=== PATIENT | female | born 1980 | race African-American/Black ===

== ENCOUNTER 2017-08-17 20:32 | Emergency (ER) | payer OTHER, MEDICAID ==
[~2017-08-17] VITALS: Ht 149.9 cm; Wt 74.8 kg
[~2017-08-17 20:32] MED LIST: ACETAMINOPHEN-1 EAC1 PO; BACTRIM DS TAB1 EACH PO; BENTYL 20 MG TA20 M1 PO; BIRTH CONTROL; CEFDINIR300 MG PO; CIPRO500 MG PO; CIPROFLOXACIN500 M1 PO; CIPROFLOXIN HC2.5 M1 OTIC; COLACE100 MG PO; DELTASONE20 MG PO; FLAGYL500 MG PO; FLEXERIL PO; HYDROCODON-ACE1 EAC7 PO; HYDROCODONE-AP1 EAC6 PO; IBUPROFEN 800800 M1 PO; IBUPROFEN 800800 MG PO; IRON325 PO; K-DUR 20 MEQ T20 MEQ PO; KEFLEX500 MG PO; LEVOTHYROXINE 0.1 MG PO; LORAZEPAM 0.50.5 MG PO; MIRALAX17 GM PO; NAPROSYN500 MG PO; NOHOMEMEDICATIONS; NORCO 5-325 TA1 EACH PO; ONDANSETRON HCL4 M2 PO; ULTRAM 50MG TAB50 MG PO; VICODIN 5-5001 EACH PO; VISTARIL 25 MG25 M1 PO; XANAX 0.25 MG0.25 MG PO; ZADITOR5 M1 OPHTHALMIC; ZITHROMAX500 MG PO; ZOFRAN ODT4 MG PO; ZOFRAN4 MG PO; ZOLOFT25 MG PO; ZPAK PO
[2017-08-17] MEDS ORDERED: FLEXERIL PO (21:55)
[2017-08-17] MEDS ORDERED: NAPROSYN500 M1 PO (21:55)
[2017-08-17 22:07] VITALS: BP 124/87
== END 2017-08-17 22:09 | disposition home or self-care (01) ==
LOC: M.ERS 20:32
DX: S39.012A Strain of muscle, fascia and tendon of lower back, initial encounter (principal); S66.911A Strain of unspecified muscle, fascia and tendon at wrist and hand level, right hand, initial encounter; E03.9 Hypothyroidism, unspecified; F41.0 Panic disorder [episodic paroxysmal anxiety]; F17.210 Nicotine dependence, cigarettes, uncomplicated; Z88.0 Allergy status to penicillin; Z88.1 Allergy status to other antibiotic agents; V89.2XXA Person injured in unspecified motor-vehicle accident, traffic, initial encounter; Y93.89 Activity, other specified; Y92.89 Other specified places as the place of occurrence of the external cause; Y99.8 Other external cause status

== ENCOUNTER 2018-08-05 20:01 | Emergency (ER) | payer OTHER ==
[~2018-08-05] VITALS: Ht 149.9 cm; Wt 79.4 kg
[~2018-08-05 20:01] MED LIST changes: +NAPROSYN500 M1 PO
[2018-08-05] MEDS ORDERED: IBUPROFEN 800800 M1 PO (20:32)
[2018-08-05] MEDS ORDERED: FLEXERIL PO (20:32)
[2018-08-05 21:55] VITALS: BP 122/77
== END 2018-08-05 21:55 | disposition home or self-care (01) ==
LOC: M.ERS 20:01
DX: S16.1XXA Strain of muscle, fascia and tendon at neck level, initial encounter (principal); S00.81XA Abrasion of other part of head, initial encounter; J43.9 Emphysema, unspecified; E05.90 Thyrotoxicosis, unspecified without thyrotoxic crisis or storm; Z90.710 Acquired absence of both cervix and uterus; Z98.890 Other specified postprocedural states; F17.210 Nicotine dependence, cigarettes, uncomplicated; Z88.0 Allergy status to penicillin; Z88.1 Allergy status to other antibiotic agents; V49.9XXA Car occupant (driver) (passenger) injured in unspecified traffic accident, initial encounter; Y93.89 Activity, other specified; Y92.89 Other specified places as the place of occurrence of the external cause; Y99.8 Other external cause status

== ENCOUNTER 2018-11-11 23:27 | Emergency (ER) | payer OTHER ==
[~2018-11-11] VITALS: Ht 149.9 cm; Wt 77.1 kg
[2018-11-11] MEDS ORDERED: ZOLOFT25 MG PO (23:59)
[2018-11-11] MEDS ORDERED: XANAX 0.5 MG0.5 MG PO (23:59)
[2018-11-12 00:18] VITALS: BP 113/71
--- NOTE | 2018-11-12 09:00 | EKG ---
[place] [address] ELECTROCARDIOGRAM REPORT Name: MAUDE NASSAR 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
== END 2018-11-12 00:33 | disposition home or self-care (01) ==
LOC: M.ERS 23:27
DX: F41.0 Panic disorder [episodic paroxysmal anxiety] (principal); Z90.710 Acquired absence of both cervix and uterus; E03.9 Hypothyroidism, unspecified; F17.210 Nicotine dependence, cigarettes, uncomplicated; Z98.890 Other specified postprocedural states; Z87.440 Personal history of urinary (tract) infections; Z88.0 Allergy status to penicillin; Z86.2 Personal history of diseases of the blood and blood-forming organs and certain disorders involving the immune mechanism; Z88.1 Allergy status to other antibiotic agents

== ENCOUNTER 2018-11-26 22:05 | Emergency (ER) | payer OTHER ==
[~2018-11-26] VITALS: Ht 149.9 cm; Wt 77.1 kg
[~2018-11-26 22:05] MED LIST changes: +XANAX 0.5 MG0.5 MG PO
[2018-11-26 22:35] LABS: ABSOLUTE BASOPHILS 0.1 thou/uL (0.0-0.2); ABSOLUTE EOSINOPHILS 0.2 thou/uL (0.0-0.7); ABSOLUTE LYMPHOCYTES 2.8 thou/uL (0.8-5.3); ABSOLUTE MONOCYTES 0.5 thou/uL (0.0-1.2); ABSOLUTE NEUTROPHILS 3.3 thou/uL (1.6-8.1); BASOPHILS 0.8 %; EOSINOPHILS 2.3 %; HEMATOCRIT 32.1 % (37.0-47.0); HEMOGLOBIN 10.2 gm/dL (12.0-15.0); LYMPHOCYTES 41.4 %; MCH 23.9 pg (26.0-34.0); MCV 74.7 fL (80.0-100.0); MONOCYTES 6.7 %; MPV 7.6 fl. (7.2-11.1); NUCLEATED RBCS 0 /100WBC; PLATELET COUNT* 480 thou/uL (150-400); POLYS 48.8 %; RBC 4.29 mil/uL (4.20-5.00); RDW-CV 20.7 % (10.5-14.5); WBC 6.8 thou/uL (4.0-11.0)
[2018-11-26 22:41] LABS: ANION GAP 16 mmol/L (7-16); BUN 6 mg/dL (7-18); CALCIUM 9.3 mg/dL (8.5-10.1); CHLORIDE 103 mmol/L (98-107); CO2 22 mmol/L (21-32); CREATININE 0.8 mg/dL (0.6-1.3); GLUCOSE 102 mg/dL (70-99); POTASSIUM 3.1 mmol/L (3.5-5.1); SODIUM 141 mmol/L (136-145)
[2018-11-26 22:45] LABS: APTT 26.4 Seconds (25.0-31.3); INR 1.1; PROTIME 10.9 Seconds (9.20-11.50)
[2018-11-26 22:53] LABS: ALKALINE PHOSPHATASE 84 U/L (46-116); CK-MB MASS < 0.5 ng/mL (<0.5-3.6); LIPASE 99 U/L (73-393); MAGNESIUM 1.7 mg/dL (1.8-2.4); NT-PRO BRAIN NAT PEPTIDE 18 pg/mL (<300); SGOT 17 U/L (15-37); SGPT 25 U/L (30-65); TOTAL BILIRUBIN 0.3 mg/dL (<0.1-1.0); TOTAL PROTEIN 7.9 g/dL (6.4-8.2); TROPONIN-I LEVEL <0.06 ng/mL (<0.06)
[2018-11-26 23:10] VITALS: BP 100/66
[2018-11-27 06:10] LABS: ANISOCYTOSIS 2+; HYPOCHROMASIA 1+; MICROCYTES 1+; PLATELET ESTIMATE INCREASED; POLYCHROMASIA 1+
[2018-11-27 06:11] LABS: OVALOCYTES Occasional
--- NOTE | 2018-11-29 14:31 | EKG ---
[place] [address] ELECTROCARDIOGRAM REPORT Name: MAUDE NASSAR 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
== END 2018-11-27 00:05 | disposition home or self-care (01) ==
LOC: M.ERS 22:05
PROVIDERS: Family Medicine
DX: F41.9 Anxiety disorder, unspecified (principal); R07.89 Other chest pain; E05.90 Thyrotoxicosis, unspecified without thyrotoxic crisis or storm; F17.210 Nicotine dependence, cigarettes, uncomplicated; Z87.440 Personal history of urinary (tract) infections; Z86.2 Personal history of diseases of the blood and blood-forming organs and certain disorders involving the immune mechanism; Z98.890 Other specified postprocedural states; Z90.710 Acquired absence of both cervix and uterus; Z88.0 Allergy status to penicillin; Z88.1 Allergy status to other antibiotic agents

== ENCOUNTER 2019-06-06 18:20 | Emergency (ER) | payer OTHER ==
[~2019-06-06] VITALS: Ht 149.9 cm; Wt 79.4 kg
[2019-06-06] MEDS ORDERED: FLEXERIL PO (20:19)
[2019-06-06] MEDS ORDERED: NORCO 5-325 TA1 EAC1 PO (20:19)
[2019-06-06 20:27] VITALS: BP 112/80
--- NOTE | 2019-06-07 14:13 | EKG ---
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1980 Requested By: Vannesa Nickerson Order Number: [id number] MD: Jamar Heller Measurements Intervals [place] Rate: 88 P: 63 AK: 159 QRS: 43 QRSD: 80 T: 40 QT: 343 QTc: 415 Interpretive Statements Sinus rhythm Borderline T abnormalities, inferior leads Baseline wander in lead(s) II,III,aVR,aVL,aVF,V1,V2,V5,V6 Compared to ECG 11/26/2018 22:12:27 no change Electronically Signed On 06-07-2019 14:13:22 EYELET ROW MARKER by Jamar Heller [email or web address] <ELECTRONICALLY SIGNED> By: Jamar Heller MD, FACC 06/07/19 1413 1840 1840 Jamar Heller MD, [facility] /EPI
== END 2019-06-06 20:28 | disposition home or self-care (01) ==
LOC: M.ERS 18:20
DX: R07.89 Other chest pain (principal); M25.512 Pain in left shoulder; E87.6 Hypokalemia; D64.9 Anemia, unspecified; E05.90 Thyrotoxicosis, unspecified without thyrotoxic crisis or storm; F41.0 Panic disorder [episodic paroxysmal anxiety]; F17.210 Nicotine dependence, cigarettes, uncomplicated; Z87.440 Personal history of urinary (tract) infections; Z88.0 Allergy status to penicillin; Z98.51 Tubal ligation status; Z90.710 Acquired absence of both cervix and uterus